=== PATIENT | male | born 1995 | race Caucasian/White ===

== ENCOUNTER 2017-06-10 17:59 | Emergency (ER) | payer SELFPAY | END 2017-06-10 19:03 | disposition left against medical advice (07) | LOC: ERS 17:59 | DX: Z53.21 Procedure and treatment not carried out due to patient leaving prior to being seen by health care provider (principal) ==

== ENCOUNTER 2018-09-24 08:44 | Emergency (ER) | payer SELFPAY | END 2018-09-24 09:32 | disposition home or self-care (01) | LOC: ERS 08:44 | DX: L02.31 Cutaneous abscess of buttock (principal) | CPT/HCPCS: 99283 ==

== ENCOUNTER 2020-02-20 07:36 | Emergency (ER) | payer SELFPAY ==
[2020-02-20] MEDS ORDERED: Ondansetron PF 4 MG/2 ML Vial ONE ×2 (08:02→12:40)
[2020-02-20] MEDS ORDERED: Morphine 4 MG/ML VIAL ONE (08:02)
[2020-02-20 08:06] LABS: Hemoglobin 15.8 g/dL (14.0-18.0); Mean Corpuscular HGB CONC 35.6 g/dL (32.0-36.0); Mean Corpuscular Hemoglobin 32.1 pg (27.0-31.0); Mean Corpuscular Volume 90.3 fL (78.0-98.0); Mean Platelet Volume 8.2 fL (7.4-10.4); Platelet Count 205 thou/uL (130-400); RBC Distribution Width 11.6 % (11.5-14.5)
[2020-02-20 08:27] LABS: ALT (SGPT) 36 U/L (8-55); AST (SGOT) 30 U/L (5-34); Albumin 4.6 g/dL (3.5-5.0); Alkaline Phosphatase 77 U/L (40-110); Anion Gap 16 mmol/L (10-20); BUN (Urea Nitrogen) 11 mg/dL (8.9-20.6); Bilirubin, Total 0.4 mg/dL (0.2-1.2); Calc. Creatinine Clearance 0 mL/min (70-130); Calcium 9.5 mg/dL (7.8-10.44); Carbon Dioxide 24 mmol/L (22-29); Chloride 106 mmol/L (98-107); Estimated GFR-MDRD 81; Globulin 3.4 g/dL (2.4-3.5); Glucose 97 mg/dL (70-105); Sodium 142 mmol/L (136-145)
--- NOTE | 2020-02-20 08:28 | CT ---
CT ABDOMEN WITH CONTRAST CT PELVIS WITH CONTRAST: DATE: 02/20/2020 8:15 AM HISTORY: 25-year-old male with severe right-sided abdominal pain Dr. Hirsch notified Dr. Hammer of the ER of the appendicitis at 8:25 AM 02/20/2020 TECHNIQUE: IV injection of iodinated contrast media: Administered Oral contrast media:Not administered FINDINGS: Liver: Normal. Gallbladder: No acute findings. Spleen: Normal. Pancreas: Normal. Adrenals: Normal. Kidneys: Normal. Ureters: No dilation. Bladder: No pathology identified. Abdominal aorta: No aneurysm or dissection. Small bowel: No dilation. Colon: No adjacent fat stranding. Appendix: Mural thickening with increased enhancement. Dilated fluid-filled lumen. Caliber 10 mm. Pos itive periappendiceal edema. Small amount of adjacent free fluid.. Free air: None. Free fluid: None. IMPRESSION: Positive for acute appendicitis, probably perforated.
[2020-02-20 08:30] LABS: Band 1 % (5-11); Eosinophils 1 % (0-10); Lymphocytes 19 % (21-51); MDiff Complete? YES; Monocytes 5 % (0-10); Neutrophil 74 % (42-75); Platelet Morphology Comment Appears Adequate; RBC Morphology Normal
[2020-02-20] MEDS ORDERED: Piperacillin/Tazobactam 4.5 GM VIAL ONE (08:48)
--- NOTE | 2020-02-20 09:06 | RAD ---
XR Chest 1 View Portable History: Reason For Study Comparison: Chest pain Findings: Lungs are clear. No pneumothorax or effusion. Cardiac silhouette and mediastinal contours a re within normal limits. No acute osseous abnormality. Impression: No acute intrathoracic abnormality.
[2020-02-20 10:29] LABS: Bilirubin Negative (Negative); Blood, Urine Negative (Negative); Clarity Clear (Clear); Glucose, Urine (Dipstick) Normal (Negative); Ketone, Urine Negative (Negative); Leukocyte Negative Leu/uL (Negative); Nitrite Negative (Negative); Protein, Urine (Dipstick) Negative (Neg-Trace); Urobilinogen Normal mg/dL (Less than 2); pH, Urine 5.5 (5.0-9.0)
[2020-02-20] MEDS ORDERED: Midazolam HCl 2 mg/2 ml Vial ONE (11:31)
[2020-02-20] MEDS ORDERED: Bupivacaine/Epinephrine 0.25% 30 ML VIAL ONE (11:31)
[2020-02-20] MEDS ORDERED: Fentanyl 100 MCG/2 ML VIAL ONE (11:40)
[2020-02-20] MEDS ORDERED: Glycopyrrolate 0.2 MG/ML 5 ML SYRINGE ONE (12:40)
[2020-02-20] MEDS ORDERED: Dexamethasone 20 MG/5 ML VIAL ONE (12:40)
[2020-02-20] MEDS ORDERED: PROPOFOL 200 MG/20 ML VIAL ONE (12:40)
[2020-02-20] MEDS ORDERED: Lidocaine 1% PF 5 ML VIAL ONE (12:40)
[2020-02-20] MEDS ORDERED: Ketorolac Tromethamine 30 MG/ML VIAL ONE (12:40)
[2020-02-20] MEDS ORDERED: Rocuronium Bromide 10 MG/ML (10ML VIAL) ONE (12:40)
[2020-02-20] MEDS ORDERED: Ondansetron HCl/PF 4 MG/2 ML Vial IVP PRN (12:45)
[2020-02-20] MEDS ORDERED: HYDROmorphone 2 MG/ML VIAL SLOW IVP PRN (12:45)
[2020-02-20] MEDS ORDERED: PACU-Morphine 4MG/ML VIAL SLOW IVP PRN (12:45)
[2020-02-20] MEDS ORDERED: Promethazine HCl 25 MG/ML VIAL IM PRN (12:45)
[2020-02-20] MEDS ORDERED: Promethazine HCl 25 MG/ML VIAL SLOW IVP PRN (12:45)
--- NOTE | 2020-02-25 13:25 | EKG ---
Test Reason : Blood Pressure : / mmHG Vent. Rate : 050 BPM Atrial Rate : 050 BPM P-R Int : 156 ms QRS Dur : 078 ms QT Int : 404 ms P-R-T Axes : 056 041 031 degrees QTc Int : 368 ms Sinus bradycardia Early repolarization Otherwise normal ECG Confirmed by ALEJANDRA HORVATH DO ([id number]), managing editor GUZMAN RAE ([id number] on 02/25/2020 1:25:14 PM Referred By: Confirmed By:ALEJANDRA HORVATH DO
== END 2020-02-20 10:15 | disposition admitted as inpatient to this hospital (09) ==
LOC: ERS 07:36
DX: K35.80 Unspecified acute appendicitis (principal); F17.210 Nicotine dependence, cigarettes, uncomplicated
CPT/HCPCS: 36415; 71045; 74177; 80053; 81003; 83690; 85025; 86140; 86850; 86900; 86901; 87040; 88304; 93005; 96365; 96375; J1100; J1885; J2250; J2270; J2405; J2543; J2704; J3010

== ENCOUNTER 2020-02-23 08:50 | Emergency (ER) | payer SELFPAY ==
[2020-02-23 09:24] LABS: #Eosinphils 0.1 thou/uL (0.0-0.7); #Lymphocytes 2.6 thou/uL (1.20-3.40); #Monocytes 0.5 thou/uL (0.11-0.59); #Neutrophils 4.8 thou/uL (1.40-6.50); %Basophils 0.4 % (0.0-1.0); %Lymphocytes 32.4 % (21.0-51.0); %Monocytes 6.5 % (0.0-10.0); %Neutrophils 59.7 % (42.0-75.0); Hemoglobin 14.3 g/dL (14.0-18.0); Mean Corpuscular HGB CONC 33.4 g/dL (32.0-36.0); Mean Corpuscular Hemoglobin 30.4 pg (27.0-31.0); Mean Platelet Volume 7.3 fL (7.4-10.4); Platelet Count 291 thou/uL (130-400); RBC Distribution Width 11.2 % (11.5-14.5); Red Blood Cell (RBC) Count 4.69 mill/uL (4.70-6.10); White Blood Cell (WBC) Count 8.1 thou/uL (4.8-10.8)
[2020-02-23 09:53] LABS: ALT (SGPT) 22 U/L (8-55); AST (SGOT) 17 U/L (5-34); Albumin 4.3 g/dL (3.5-5.0); Alkaline Phosphatase 61 U/L (40-110); Anion Gap 11 mmol/L (10-20); BUN (Urea Nitrogen) 10 mg/dL (8.9-20.6); Bilirubin, Total 0.3 mg/dL (0.2-1.2); Calc. Creatinine Clearance 0 mL/min (70-130); Calcium 9.1 mg/dL (7.8-10.44); Carbon Dioxide 29 mmol/L (22-29); Chloride 101 mmol/L (98-107); Estimated GFR-MDRD 85; Glucose 110 mg/dL (70-105); Lipase 14 U/L (8-78); Potassium 3.6 mmol/L (3.5-5.1); Protein, Total 7.3 g/dL (6.0-8.3); Sodium 137 mmol/L (136-145)
[2020-02-23] MEDS ORDERED: diphenhydrAMINE 50 MG/ML VIAL ONE (10:03)
[2020-02-23] MEDS ORDERED: Ondansetron PF 4 MG/2 ML Vial ONE (10:03)
[2020-02-23] MEDS ORDERED: Metoclopramide HCl 10 MG/2 ML VIAL ONE (10:03)
--- NOTE | 2020-02-23 10:28 | CT ---
CT BRAIN WITHOUT CONTRAST: HISTORY: Headache, nausea and vomiting FINDINGS: No evidence of acute infarct, hemorrhage, midline shift or abnormal extra-axial fluid collections is seen. The ventricular size is appropriate and the basilar cisterns are patent. The bony calvarium is intact. The visualized paranasal sinuses and mastoid air cells are well aerated. IMPRESSION: No CT evidence of acute intracranial process.
[2020-02-23] MEDS ORDERED: Ketorolac Tromethamine 30 MG/ML VIAL ONE (10:42)
[2020-02-23] MEDS ORDERED: Magnesium 2 GM/50 ML BAG (IN WATER) ONE (11:40)
[2020-02-23] MEDS ORDERED: methylPREDNISolone Sod Succ/PF 125 MG/2 ML VIAL ONE (11:40)
== END 2020-02-23 13:23 | disposition home or self-care (01) ==
LOC: ERS 08:50
DX: R51.9 Headache, unspecified (principal); F17.210 Nicotine dependence, cigarettes, uncomplicated; Z79.899 Other long term (current) drug therapy
CPT/HCPCS: 36415; 70450; 80053; 83690; 85025; 96365; 96366; 96368; 96375; J1200; J1885; J2405; J2765; J2930; J3475

== ENCOUNTER 2023-09-29 17:15 | Emergency (ER) | payer SELFPAY ==
[2023-09-29 20:14] LABS: Bacteria/HPF None Seen HPF (None Seen); Bilirubin Negative (Negative); Blood, Urine Negative (Negative); CAUTI Indications for Culture Pelvic or flank pain; Clarity Clear (Clear); Glucose, Urine (Dipstick) Normal (Negative); Ketone, Urine Negative (Negative); Leukocyte Negative Leu/uL (Negative); Nitrite Negative (Negative); Protein, Urine (Dipstick) Negative (Neg-Trace); RBC/HPF 0-3 HPF (0-3); Specific Gravity, Urine 1.015 (1.002-1.036); Squamous Epithelial None Seen HPF (0-3); Urobilinogen Normal mg/dL (Less than 2); WBC/HPF 0-3 HPF (0-3)
[2023-09-29 20:36] LABS: Urine Culture Reflex No No
== END 2023-09-29 20:54 | disposition home or self-care (01) ==
LOC: ERS 17:15
DX: S30.22XA Contusion of scrotum and testes, initial encounter (principal); F17.210 Nicotine dependence, cigarettes, uncomplicated; X58.XXXA Exposure to other specified factors, initial encounter
CPT/HCPCS: 76870; 81001; 93976